=== PATIENT | male | born 1995 | race Hispanic/Latino ===

== ENCOUNTER 2022-07-14 12:37 | Emergency (ER) | payer SELFPAY ==
[2022-07-14] VITALS (7 sets, daily range): BP systolic 119–140; BP diastolic 69–101; PULSE 91–123; RESP 14–22; TEMP 37.1; O2SAT 97–100
--- NOTE | ~2022-07-14 | XR_ITS ---
EXAMINATION: XR chest 2V DATE: 07/14/2022 13:35 INDICATION: Cough TECHNIQUE: Frontal and lateral views of the chest are obtained COMPARISON: None available FINDINGS: The lungs are free of acute opacities. No pleural effusion or pneumothorax. The cardiomedia stinal silhouette is normal. The visualized bones and soft tissues are unremarkable. IMPRESSION: 1. No acute cardiopulmonary abnormality. Reviewed, dictated and finalized at location A.
--- NOTE | ~2022-07-14 | CT_ITS ---
EXAMINATION: CTA chest PE protocol DATE: 07/14/2022 16:40 INDICATION: tachycardia/ CP TECHNIQUE: Computed tomography angiography (CTA) of the chest was performed with intravenous contrast timed to evaluate the pulmonary arteries. Coronal maximum intensity projection 3D-reconstructions we re created by the technologist. The dose-length product (DLP) was 244.15 mGy-cm. Automated exposure c ontrol and iterative reconstruction technique were employed. COMPARISON: None. FINDINGS: Lung parenchyma and airways: Clear. Pleura: Unremarkable. Thoracic inlet, axillae and chest wall: Unremarkable. Thoracic aorta: Normal. Mediastinum: Normal. Heart and pericardium: Normal. Coronary artery calcifications: Absent. Upper abdomen: No significant finding. Bones: No acute osseous finding. Pulmonary arteries: Study quality: Mild motion artifact, particularly in the left lower lobe, overall diagnostic. No pulmonary emboli detected. IMPRESSION: No CT evidence of acute pulmonary embolus. No acute intrathoracic process detected. Reviewed, dictated and finalized at location K. IMPRESSION: No CT evidence of acute pulmonary embolus. No acute intrathoracic process detec murray.
--- NOTE | 2022-07-14 13:32 | ED.GENADULT ---
HPI - General Adult General Chief complaint: Upper Respiratory Infection Stated complaint: lungs hurt Time Seen by Provider: 07/14/22 13:04 History of Present Illness HPI narrative: 26-year-old male presented to the emergency department for evaluation of 8 months of intermittent back pain and shortness of breath. Patient states that he was seen in [place] for similar symptoms was prescribed an unknown medication that did seem to help. Patient reports that he did feel that he had been diagnosed with asthma when he was younger but patient does not have a current physician. Patient states he did have some diarrhea a few days ago. Patient denies any associated chest pain or shortness of breath. Patient does have associated nasal congestion. Related Data Allergies Allergy/AdvReac Type Severity Reaction Status Date / Time No Known Allergies Allergy Verified 07/14/22 13:55 Review of Systems Review of Systems: All systems reviewed & are unremarkable except as noted in HPI and below Exam Narrative: APPEARANCE: Well appearing, no pain, no distress, well-nourished. HEAD: normocephalic, atraumatic. EYES: PERRLA/EOMI, conjunctivae clear. NOSE: Normal no drainage NECK: Supple. No adenopathy, no masses. RESPIRATORY: Airway patent, respirations nonlabored. Clear to auscultation bilaterally, no rales, rhonchi, wheezing. CARDIOVASCULAR: Tachycardia ABDOMINAL: Soft, nontender, nondistended, normal bowel sounds MUSCULOSKELETAL: Moves all extremities. Strength/ROM intact, No edema, No calf tenderness. NEURO: Alert. Cranial nerves II through XII intact. Grossly intact SKIN: Warm, dry. Normal Color Course Course Emergency Course: 26-year-old male presented the ED for evaluation of back pain and lung pain. Patient's x-ray showed no acute cardiopulmonary malady. Patient did remain tachycardic in the emergency department although he did feel improved with the Toradol. Patient's heart rate still elevated CBC CMP and D-dimer were ordered. Patient's D-dimer was elevated at 0.5 Tachycardia was resolved with IV fluids. CTA chest showed no acute abnormality. Patient was encouraged of close follow-up with his primary care physician. Patient was prescribed albuterol for his wheezing intermittent shortness of breath. Patient was advised to take Tylenol and ibuprofen for his suspected pleuritic chest pain. Vital Signs Vital signs: Vital Signs Temperature 98.7 F 07/14/22 13:00 Pulse Rate 110 H 07/14/22 13:00 Respiratory Rate 20 07/14/22 13:00 Blood Pressure 140/86 07/14/22 13:00 Pulse Oximetry 97 07/14/22 13:00 Oxygen Delivery Room Air 07/14/22 13:00 Temperature 98.7 F 07/14/22 15:14 Pulse Rate 98 07/14/22 17:15 Respiratory Rate 16 07/14/22 17:15 Blood Pressure 140/90 07/14/22 17:15 Pulse Oximetry 100 07/14/22 17:15 Oxygen Delivery Room Air 07/14/22 13:45 Medical Decision Making Vital Signs Vital Signs: Vital Signs Temperature 98.7 F 07/14/22 13:00 Pulse Rate 110 H 07/14/22 13:00 Respiratory Rate 20 07/14/22 13:00 Blood Pressure 140/86 07/14/22 13:00 Pulse Oximetry 97 07/14/22 13:00 Oxygen Delivery Room Air 07/14/22 13:00 Temperature 98.7 F 07/14/22 15:14 Pulse Rate 98 07/14/22 17:15 Respiratory Rate 16 07/14/22 17:15 Blood Pressure 140/90 07/14/22 17:15 Pulse Oximetry 100 07/14/22 17:15 Oxygen Delivery Room Air 07/14/22 13:45 Lab Data Lab results reviewed: Yes I reviewed the patient's lab results. 07/14/22 15:27 07/14/22 15:27 Labs: Lab Results 07/14/22 07/14/22 07/14/22 Range/Units 13:49 15:27 15:27 WBC 6.5 (4.5-10.0) K/mm3 RBC 5.37 (4.6-6.20) M/mm3 Hgb 14.5 (14.0-18.0) g/dL Hct 41.8 L (42.0-52.0) % MCV 77.8 L (80-100) fl MCH 27.0 (26-34) pg MCHC 34.7 (32-36) g/dl RDW 13.1 (11.5-14.5) % Plt Count 250 (150-375) k/mm3 MPV 10.1 (7.4-10.4) fl Immat
[2022-07-14] MEDS: LEVALBUTEROL NEB 1.25 MG/3 ML INHALATION (13:45)
[2022-07-14] MEDS: KETOROLAC 30 MG/ML VIAL (*BKC) IM (13:49)
[2022-07-14 14:30] LABS: Influenza A QL RT-PCR Negative (Negative); Influenza B QL RT-PCR Negative (Negative); RSV RNA, RT-PCR Negative (Negative); SARS-CoV-2 RNA PCR Negative (Negative)
[2022-07-14 15:33] LABS: Basophils Percent Auto 0.3 % (0.2-1.2); Eosinophils Absolute Auto 0.2 K/mm3 (0-0.3); Eosinophils Percent Auto 3.1 % (0-4.4); Hematocrit 41.8 % (42.0-52.0); Hemoglobin 14.5 g/dL (14.0-18.0); Immature Granulocyte Absolute 0.01 K/mm3 (0.00-0.031); Immature Granulocyte Percent A 0.2 % (0-0.5); Lymphocytes Absolute Auto 3.17 K/mm3 (0.9-3.2); Lymphocytes Percent Auto 48.8 % (18.3-44.2); Mean Corpuscular HGB Conc 34.7 g/dl (32-36); Mean Corpuscular Volume 77.8 fl (80-100); Mean Platelet Volume 10.1 fl (7.4-10.4); Monocytes Absolute Auto 0.6 K/mm3 (0.1-0.6); Monocytes Percent Auto 9.8 % (2.6-8.5); Neutrophils Absolute Auto 2.5 K/mm3 (1.3-6.7); Neutrophils Percent Auto 37.8 % (45.5-73.1); Platelet Count Result 250 k/mm3 (150-375); Red Blood Count 5.37 M/mm3 (4.6-6.20); Red Cell Distribution Width 13.1 % (11.5-14.5); White Blood Count 6.5 K/mm3 (4.5-10.0)
[2022-07-14] MEDS: SODIUM CHLORIDE 0.9% IV 1,000 ML 999 ML IV CONT (15:40)
[2022-07-14 15:44] LABS: Alanine Aminotransferase 44 U/L (6-50); Albumin Level 4.1 g/dL (3.5-5.1); Alkaline Phosphatase 219 U/L (38-126); Anion Gap 7 mmol/L (8-16); Aspartate Amino Transferase 31 U/L (17-59); Bilirubin,Total 0.8 mg/dL (0.2-1.3); Blood Urea Nitrogen 11 mg/dL (9-20); Calcium 8.7 mg/dL (8.4-10.2); Carbon Dioxide 28 mmol/L (22-30); Chloride 102 mmol/L (98-107); Estimated CRCL calculation 161 ml/min; Estimated Glomerular Filt Rate > 60; Glucose 119 mg/dL (65-110); Potassium 3.7 mmol/L (3.4-5.0); Sodium 137 mmol/L (137-145)
== END 2022-07-14 17:15 | disposition home or self-care (01) ==
PROVIDERS: Emergency Provider Emergency Medicine
DX: M54.9 Dorsalgia, unspecified (principal); R06.02 Shortness of breath; Z20.822 Contact with and (suspected) exposure to COVID-19
CPT/HCPCS: 36415; 71046; 71275; 80053; 85025; 85380; 87637; 94640; 96360; 96372; 99284; J1885; J7030; Q9967